=== PATIENT | female | born 1940 | race Caucasian/White ===

== ENCOUNTER 2022-10-04 09:30 | Inpatient (IN) ==
[~2022-10-04 09:30] MED LIST: ACETAMINOPHEN 325 MG TABLET PO PRN; ALUMINUM/MAGNES/SIMETH MAX STR 30 ML UDCUP PO PRN; CALCIUM CARBONATE CHEW 500 MG TABLET PO PRN; DOCUSATE SODIUM 100 MG CAPSULE PO PRN; LACTULOSE 20 GM/30 ML UDCUP PO PRN; MORPHINE 2 MG/1 ML SYRINGE IV PRN; ONDANSETRON 4 MG/2 ML VIAL IV PRN; SIMETHICONE CHEW 125 MG TABLET PO PRN; ZALEPLON 5 MG CAPSULE PO PRN; hydrALAZINE 20 MG/1 ML VIAL IV PRN
[2022-10-04 10:23] LABS: Basophils % 0.6 % (0.0-0.8); Eosinophils # 0.1 10*3/uL (0.0-0.87); Eosinophils % 1.7 % (0.00-10.9); Hematocrit 43.6 VOL% (35.7-47.0); Immature Granulocytes % 0.4 %; Immature Granulocytes Absolute 0.03 #; Lymphocytes # 0.8 10*3/uL (1.4-4.0); Lymphocytes % 10.9 % (21.3-54.2); Mean Corpuscular HGB Conc 32.1 GM/DL (32-36); Mean Corpuscular Volume 97.3 FL (87-102); Mean Platelet Volume 10.8 FL (9.6-12.0); Monocytes # 0.8 10*3/uL (0.11-0.8); Monocytes % 10.9 % (1.7-12.7); Neutrophils % 75.5 % (38.7-73.9); Platelet Count 262 T/CUMM (130-400); Red Blood Count 4.48 MC/CUMM (3.8-5.5); Red Cell Distribution Width 13.8 % (9.3-17.3)
[2022-10-04 10:45] LABS: Albumin 2.6 G/DL (3.4-5.0); Bilirubin,Total 1.2 MG/DL (0.20-1.00); Osmolality,Calculated 271.8 MOS/KG (273-304); Potassium 2.6 MMOL/L (3.5-5.1); Total Protein 6.8 G/DL (6.4-8.2)
[2022-10-04] MEDS: PANTOPRAZOLE 40 MG TABLET PO SCH (11:46)
[2022-10-04] MEDS: SOTALOL 80 MG TABLET PO SCH ×2 (11:46→21:50)
[2022-10-04] MEDS: POTASSIUM CHLORIDE 20 MEQ TABLET PO SCH ×2 (11:47→21:50)
[2022-10-04 12:57] LABS: Thyroid Stimulating Hormone 4.29 uIU/ml (0.358-3.74)
[2022-10-04] MEDS ORDERED: FUROSEMIDE 40 MG/4 ML VIAL IV SCH (16:00)
[2022-10-04] MEDS: FUROSEMIDE 40 MG/4 ML VIAL IV SCH (16:08)
[2022-10-04] MEDS: LATANOPROST 0.005% OPH SOLN 2.5 ML BOTTLE BOTH EYES SCH (21:50)
[2022-10-04] MEDS: SACUBITRIL/VALSARTAN 49-51 MG TABLET PO SCH (21:50)
[2022-10-04] MEDS: DORZOLAMIDE 2% OPH SOLN 10 ML BOTTLE BOTH EYES SCH (21:51)
[2022-10-04] MEDS: BRIMONIDINE 0.2% OPH SOLN 5 ML BOTTLE BOTH EYES SCH (21:51)
[2022-10-04] MEDS: ATORVASTATIN 10 MG TABLET PO SCH (21:51)
[2022-10-05 05:01] LABS: Basophils # 0.1 10*3/uL (0.0-0.2); Basophils % 0.7 % (0.0-0.8); Eosinophils # 0.1 10*3/uL (0.0-0.87); Eosinophils % 1.1 % (0.00-10.9); Hematocrit 40.4 VOL% (35.7-47.0); Hemoglobin 13.3 GM/DL (12.0-16.0); Immature Granulocytes % 0.3 %; Immature Granulocytes Absolute 0.02 #; Lymphocytes # 1.6 10*3/uL (1.4-4.0); Mean Corpuscular HGB Conc 32.9 GM/DL (32-36); Mean Corpuscular Volume 93.5 FL (87-102); Mean Platelet Volume 10.8 FL (9.6-12.0); Monocytes # 0.9 10*3/uL (0.11-0.8); Monocytes % 11.9 % (1.7-12.7); Platelet Count 249 T/CUMM (130-400); Red Blood Count 4.32 MC/CUMM (3.8-5.5); Red Cell Distribution Width 13.6 % (9.3-17.3); White Blood Count 7.5 T/CUMM (4-12)
[2022-10-05 05:33] LABS: Calcium 8.2 MG/DL (8.5-10.1); Risk Ratio 3.25; VLDL Cholesterol 19.6 MG/DL
[2022-10-05] MEDS: LEVOTHYROXINE 50 MCG TABLET PO SCH (06:06)
[2022-10-05] MEDS: POTASSIUM CHLORIDE 20 MEQ TABLET PO SCH ×2 (09:33→20:58)
[2022-10-05] MEDS: SACUBITRIL/VALSARTAN 49-51 MG TABLET PO SCH ×2 (09:33→20:59)
[2022-10-05] MEDS: SOTALOL 80 MG TABLET PO SCH ×2 (09:34→20:58)
[2022-10-05] MEDS: DIGOXIN 0.125 MG TABLET PO SCH (09:34)
[2022-10-05] MEDS: TAMOXIFEN 10 MG TABLET PO SCH (09:35)
[2022-10-05] MEDS: ASPIRIN EC 81 MG TABLET PO SCH (09:35)
[2022-10-05] MEDS: PANTOPRAZOLE 40 MG TABLET PO SCH (09:35)
[2022-10-05] MEDS: FUROSEMIDE 40 MG/4 ML VIAL IV SCH (09:37)
[2022-10-05] MEDS: BRIMONIDINE 0.2% OPH SOLN 5 ML BOTTLE BOTH EYES SCH ×2 (09:47→20:58)
[2022-10-05] MEDS: DORZOLAMIDE 2% OPH SOLN 10 ML BOTTLE BOTH EYES SCH ×2 (09:47→20:58)
[2022-10-05] MEDS: ATORVASTATIN 10 MG TABLET PO SCH (20:59)
[2022-10-05] MEDS: LATANOPROST 0.005% OPH SOLN 2.5 ML BOTTLE BOTH EYES SCH (20:59)
[2022-10-06 05:30] LABS: Basophils # 0.1 10*3/uL (0.0-0.2); Basophils % 0.8 % (0.0-0.8); Eosinophils # 0.2 10*3/uL (0.0-0.87); Eosinophils % 2.6 % (0.00-10.9); Hematocrit 44.3 VOL% (35.7-47.0); Hemoglobin 14.5 GM/DL (12.0-16.0); Immature Granulocytes % 0.3 %; Immature Granulocytes Absolute 0.02 #; Lymphocytes # 1.9 10*3/uL (1.4-4.0); Lymphocytes % 25.9 % (21.3-54.2); Mean Corpuscular HGB Conc 32.7 GM/DL (32-36); Mean Corpuscular Volume 94.7 FL (87-102); Mean Platelet Volume 11.2 FL (9.6-12.0); Monocytes # 0.8 10*3/uL (0.11-0.8); Monocytes % 11.5 % (1.7-12.7); Neutrophils % 58.9 % (38.7-73.9); Platelet Count 282 T/CUMM (130-400); Red Blood Count 4.68 MC/CUMM (3.8-5.5); Red Cell Distribution Width 13.9 % (9.3-17.3); White Blood Count 7.3 T/CUMM (4-12)
[2022-10-06 05:59] LABS: Calcium 8.9 MG/DL (8.5-10.1); Osmolality,Calculated 275.5 MOS/KG (273-304); Potassium 3.3 MMOL/L (3.5-5.1)
[2022-10-06] MEDS: LEVOTHYROXINE 50 MCG TABLET PO SCH (06:08)
[2022-10-06] MEDS: BRIMONIDINE 0.2% OPH SOLN 5 ML BOTTLE BOTH EYES SCH ×2 (09:55→20:57)
[2022-10-06] MEDS: ASPIRIN EC 81 MG TABLET PO SCH (09:55)
[2022-10-06] MEDS: SOTALOL 80 MG TABLET PO SCH ×2 (09:56→20:56)
[2022-10-06] MEDS: SACUBITRIL/VALSARTAN 49-51 MG TABLET PO SCH ×2 (09:56→20:56)
[2022-10-06] MEDS: POTASSIUM CHLORIDE 20 MEQ TABLET PO SCH ×2 (09:56→20:56)
[2022-10-06] MEDS: FUROSEMIDE 40 MG/4 ML VIAL IV SCH (09:57)
[2022-10-06] MEDS: DORZOLAMIDE 2% OPH SOLN 10 ML BOTTLE BOTH EYES SCH ×2 (09:57→20:57)
[2022-10-06] MEDS: TAMOXIFEN 10 MG TABLET PO SCH (09:57)
[2022-10-06] MEDS: DIGOXIN 0.125 MG TABLET PO SCH (09:57)
[2022-10-06] MEDS: PANTOPRAZOLE 40 MG TABLET PO SCH (09:57)
[2022-10-06] MEDS ORDERED: POTASSIUM CHLORIDE 20 MEQ TABLET PO ONE (12:00)
[2022-10-06] MEDS: ATORVASTATIN 10 MG TABLET PO SCH (20:56)
[2022-10-06] MEDS: LATANOPROST 0.005% OPH SOLN 2.5 ML BOTTLE BOTH EYES SCH (22:39)
[2022-10-07] MEDS ORDERED: SODIUM CHLORIDE 0.9% 1,000 ML IV SCH (05:00)
[2022-10-07 05:14] LABS: Basophils # 0.1 10*3/uL (0.0-0.2); Basophils % 0.8 % (0.0-0.8); Eosinophils # 0.2 10*3/uL (0.0-0.87); Eosinophils % 2.4 % (0.00-10.9); Hematocrit 45.1 VOL% (35.7-47.0); Hemoglobin 14.2 GM/DL (12.0-16.0); Immature Granulocytes % 0.5 %; Immature Granulocytes Absolute 0.04 #; Lymphocytes # 1.9 10*3/uL (1.4-4.0); Lymphocytes % 23.9 % (21.3-54.2); Mean Corpuscular HGB Conc 31.5 GM/DL (32-36); Mean Corpuscular Volume 96.2 FL (87-102); Mean Platelet Volume 10.6 FL (9.6-12.0); Monocytes # 0.6 10*3/uL (0.11-0.8); Neutrophils % 65.4 % (38.7-73.9); Platelet Count 306 T/CUMM (130-400); Red Blood Count 4.69 MC/CUMM (3.8-5.5); White Blood Count 7.9 T/CUMM (4-12)
[2022-10-07 05:40] LABS: Calcium 9.1 MG/DL (8.5-10.1); Osmolality,Calculated 275.8 MOS/KG (273-304); Potassium 3.8 MMOL/L (3.5-5.1)
[2022-10-07] MEDS: LEVOTHYROXINE 50 MCG TABLET PO SCH (06:00)
[2022-10-07] MEDS ORDERED: FUROSEMIDE 20 MG TABLET PO SCH (09:00)
[2022-10-07] MEDS: ASPIRIN EC 81 MG TABLET PO SCH (09:33)
[2022-10-07] MEDS: SOTALOL 80 MG TABLET PO SCH (09:33)
[2022-10-07] MEDS: DORZOLAMIDE 2% OPH SOLN 10 ML BOTTLE BOTH EYES SCH (09:33)
[2022-10-07] MEDS: TAMOXIFEN 10 MG TABLET PO SCH (09:33)
[2022-10-07] MEDS: POTASSIUM CHLORIDE 20 MEQ TABLET PO SCH (09:33)
[2022-10-07] MEDS: SACUBITRIL/VALSARTAN 49-51 MG TABLET PO SCH (09:33)
[2022-10-07] MEDS: DIGOXIN 0.125 MG TABLET PO SCH (09:33)
[2022-10-07] MEDS: PANTOPRAZOLE 40 MG TABLET PO SCH (09:33)
[2022-10-07] MEDS: BRIMONIDINE 0.2% OPH SOLN 5 ML BOTTLE BOTH EYES SCH (09:33)
[2022-10-07 12:13] VITALS: BP 129/58
[2022-10-07] MEDS ORDERED: ETOMIDATE 40 MG/20 ML VIAL IV ONE (12:30)
[2022-10-07] MEDS ORDERED: propofoL 200 MG/20 ML VIAL IV ONE (12:30)
[2022-10-07] MEDS ORDERED: ONDANSETRON 4 MG/2 ML VIAL ONE (12:30)
== END 2022-10-07 13:48 | disposition home or self-care (01) | DRG 308 ==
LOC: N.TELEN 09:30
PROVIDERS: ADMIT Internal Medicine Interventional Cardiology; ATTEND Internal Medicine Interventional Cardiology